=== PATIENT | female | born 1955 | race Caucasian/White ===

== ENCOUNTER → 2016-12-21 | Outpatient (REF) | payer MEDICARE ==
[2016-12-21 12:38] LABS: CALCIUM LEVEL 8.9 MG/DL (8.8-10.2)
== END ==
LOC: M SFHCCLAY 08:14
PROVIDERS: ATTEND Nurse Practitioner Family
DX: I10 Essential (primary) hypertension (principal); E78.4 Other hyperlipidemia; E03.9 Hypothyroidism, unspecified; E55.9 Vitamin D deficiency, unspecified

== ENCOUNTER → 2017-01-04 | Outpatient (CLI) | payer MEDICARE ==
--- NOTE | 2017-01-04 08:29 | REPMRS ---
Patient History The patient states she had a clinical breast exam in 12/2016. Patient is postmenopausal and has history of other cancer at age 38. Family history of breast cancer in maternal aunt at age 50 or over, pancreatic cancer in brother at age 57, and prostate cancer in brother at age 57. Digital Woman Screen Mammo: January 04, 2017 - Exam #: [id number] Bilateral CC and MLO view(s) were taken. Technologist: Mi Schneider Technologist Prior study comparison: November 18, 2015, digital woman screen mammo performed at [facility]. October 30, 2014, digital woman screen mammo performed at [facility]. October 25, 2013, digital woman screen mammo performed at [facility]. FINDINGS: The breast tissue is almost entirely fat. There has been no change in the appearance of the mammogram from the prior studies. There is no interval development of dominant mass, architectural distortion, or clustered microcalcification typical of malignancy. ASSESSMENT: BI-RADS/ACR category 1 mammogram. Negative. Recommendation Routine screening mammogram of both breasts in 1 year (for women over age 40). This mammogram was interpreted with the aid of an FDA-approved computer-aided dectection system. Electronically Signed By: Christopher Welsh MD 01/04/17 0829
== END ==
LOC: M WHC 07:50
PROVIDERS: ATTEND Nurse Practitioner Family
DX: Z12.31 Encounter for screening mammogram for malignant neoplasm of breast (principal); Z78.0 Asymptomatic menopausal state; Z85.9 Personal history of malignant neoplasm, unspecified; Z80.3 Family history of malignant neoplasm of breast

== ENCOUNTER → 2017-03-20 | Outpatient (REF) | payer MEDICARE ==
[~2017-03-20] MED LIST: ASPI81TA85 PO; COUM2.5T17 PO; CYCL10TA PO; HYDR-3713 PO; HYDR25TAB PO; IBUP-1022 PO; LISI10TA4 PO; MULT1TAB15 PO; OMEP40CA2 PO; PERC5TAB12 PO; SIMV40TA2 PO; SYNT125T PO; VITA100066 PO; WARF-23 PO
== END ==
LOC: M SFHCCLAY 08:41
PROVIDERS: ATTEND Nurse Practitioner Family
DX: E78.4 Other hyperlipidemia (principal); E03.9 Hypothyroidism, unspecified; E55.9 Vitamin D deficiency, unspecified

== ENCOUNTER → 2017-04-28 | Outpatient (REF) | payer MEDICARE ==
[2017-04-28 11:55] LABS: MEAN CORPUSCULAR HEMOGLOBIN 31.5 pg (27.0-33.0); MEAN CORPUSCULAR HGB CONC 33.8 g/dl (32.0-36.5); MEAN CORPUSCULAR VOLUME 93.3 fl (80.0-96.0); RED CELL DISTRIBUTION WIDTH 11.5 % (11.5-14.5)
[2017-04-28 12:22] LABS: ALBUMIN 3.6 GM/DL (3.2-5.2); ANION GAP 10 MEQ/L (8-16); BLOOD UREA NITROGEN 17 MG/DL (7-18); CALCIUM LEVEL 8.8 MG/DL (8.8-10.2); CARBON DIOXIDE LEVEL 27 MEQ/L (21-32); CHLORIDE LEVEL 101 MEQ/L (98-107); CREATININE FOR GFR 0.74 MG/DL (0.55-1.02); GLOMERULAR FILTRATION RATE > 60.0 (>45); GLUCOSE, FASTING 84 MG/DL (80-110); POTASSIUM SERUM 4.3 MEQ/L (3.5-5.1); SODIUM LEVEL 138 MEQ/L (136-145)
== END ==
LOC: M LABDRAWC 11:22
PROVIDERS: ATTEND Orthopaedic Surgery
DX: M51.36 Other intervertebral disc degeneration, lumbar region (principal)

== ENCOUNTER → 2017-06-01 | Outpatient (CLI) | payer MEDICARE ==
[2017-06-01 11:19] LABS: MEAN CORPUSCULAR HEMOGLOBIN 30.3 pg (27.0-33.0); MEAN CORPUSCULAR HGB CONC 32.6 g/dl (32.0-36.5); MEAN CORPUSCULAR VOLUME 92.9 fl (80.0-96.0); RED CELL DISTRIBUTION WIDTH 11.8 % (11.5-14.5); WHITE BLOOD COUNT 7.3 10^3/uL (4.0-10.0)
--- NOTE | 2017-06-01 11:22 | REP ---
Chest two views HISTORY: Preop Comparison: None A small area of atelectasis or infiltrate is present in the left lower lobe. The right lung is clear. The heart is normal in size. The pulmonary vasculature is normal in appearance. The bony structure is intact. IMPRESSION: Small area of left lower lobe atelectasis or infiltrate. Signed by Gabriel Cardenas MD 06/01/2017 11:13 A
[2017-06-01 11:34] LABS: INR 0.82
[2017-06-01 11:56] LABS: ALBUMIN 3.7 GM/DL (3.2-5.2); ALBUMIN/GLOBULIN RATIO 1.12 (1.00-1.93); ALKALINE PHOSPHATASE 107 U/L (45-117); ALT/SGPT 27 U/L (12-78); ANION GAP 6 MEQ/L (8-16); AST/SGOT 19 U/L (15-37); BILIRUBIN,TOTAL 0.4 MG/DL (0.2-1.0); BLOOD UREA NITROGEN 19 MG/DL (7-18); CALCIUM LEVEL 9.1 MG/DL (8.8-10.2); CARBON DIOXIDE LEVEL 29 MEQ/L (21-32); CHLORIDE LEVEL 103 MEQ/L (98-107); CREATININE FOR GFR 0.76 MG/DL (0.55-1.02); GLOMERULAR FILTRATION RATE > 60.0 (>45); GLUCOSE, FASTING 94 MG/DL (80-110); POTASSIUM SERUM 4.3 MEQ/L (3.5-5.1); SODIUM LEVEL 138 MEQ/L (136-145)
--- NOTE | 2017-06-01 22:49 | ECGEPIP ---
Stationary ECG Study [facility] Test Date: 2017-06-01 Pat Name: MARILY HOLLINGSWORTH Department: Room: - Gender: F Color Separation Photographer: SILVIA : 1955 Requested By: Dusty Lowry Order Number: [id number] Reading MD: Dwayne Khan Measurements Intervals [place] Rate: 93 P: 24 [place]: 153 QRS: -20 QRSD: 86 T: 51 QT: 335 QTc: 417 Interpretive Statements SINUS RHYTHM POSSIBLE RIGHT VENTRICULAR CONDUCTION DELAY Poor R-wave progression. NONSPECIFIC T-WAVE ABNORMALITY No prior ECG available for comparison at the time of interpretation. Electronically Signed On 06-01-2017 22:49:47 EDT by Dwayne Khan
== END ==
LOC: M ADMPAT 09:28
PROVIDERS: ATTEND Orthopaedic Surgery
DX: Z01.818 Encounter for other preprocedural examination (principal); M17.12 Unilateral primary osteoarthritis, left knee; Z79.01 Long term (current) use of anticoagulants; Z79.899 Other long term (current) drug therapy

== ENCOUNTER → 2017-06-07 | Outpatient (REF) | payer MEDICARE | LOC: M LAB REF 11:37 | PROVIDERS: ATTEND Orthopaedic Surgery | DX: M17.12 Unilateral primary osteoarthritis, left knee (principal); Z01.812 Encounter for preprocedural laboratory examination ==

== ENCOUNTER 2017-06-12 09:20 | Inpatient (IN) | payer MEDICARE ==
[2017-06-01 09:51] VITALS: BP 122/68
--- NOTE | 2017-06-09 13:30 | HPE ---
DATE OF ADMISSION: 06/12/2017 HISTORY OF PRESENT ILLNESS: This is a pleasant female with continuing symptomatic left knee osteoarthritis. She has consented for left total knee arthroplasty per Dr. Dusty vasquez. Medical optimization per Dr. Riggs. X-rays are consistent with advanced osteoarthritis. ALLERGIES: PENICILLIN. MEDICAL PROBLEM LIST: Includes: 1. Hypercholesteremia. 2. Hypertension. 3. Osteoarthritis. 4. Hypothyroid with a history of thyroid cancer and thyroidectomy. CURRENT MEDICATIONS List includes: - cyclobenzaprine HCl 10 mg - hydrocodone/acetaminophen 5/325 - Ibuprofen 600 mg - Zocor 40 mg - Levothroid 125 mcg - hydrochlorothiazide 25 mg - Prilosec 40 mg FAMILY HISTORY: Positive for arthritis, hypertension, heart disease, diabetes, hypercholesteremia, cancer. SOCIAL HISTORY: The patient is a former smoker, quit 1984. Just occasionally, very lightly consumes alcohol. Denies illicit drugs. REVIEW OF SYSTEMS: Denies chest pain, shortness of breath, dyspnea on exertion, fever, chills, malaise, upper respiratory or urinary tract symptoms. PHYSICAL EXAMINATION: Blood pressure 130/92, pulse 84, respirations 12. She is a pleasant, obese, white female in no acute distress. She is alert and oriented times three. Mood and affect are appropriate. She is ambulating with antalgia about the left knee , favoring of the right. No assistive device. She did have a knee brace applied. Skin is inspected and benign, noninfectious looking. Bowel sounds times four, soft, nontender. Chest rises symmetrically. Lungs are clear to auscultation. Neck with negative jugular venous distention (JVD) or bruits. Chest x-ray shows small area left lower old lobe atelectasis or infiltrate, as read by Dr. Cardenas on 06/01/2017. The patient notes that a followup study will be done for that but that her primary care provider stated this without affect her medical optimization and I agree since I did read the optimization clearance. EKG with sinus rhythm, possible right ventricular conduction delay, as read by Dr. Khan. LABORATORY FINDINGS: Showed BUN 19 and anion gap 6, red blood cell count 3.96, PTT 11.3. Bacteria urine auto 1+. Urine, nasal, and sinus culture were unremarkable. IMPRESSION: 1. Symptomatic left knee osteoarthritis. 2. The patient consented for left total knee arthroplasty per Dr. Dusty Vasquez. 3. Medical optimization per Dr. Riggs. 4. On-call to OR, 600 mg IV clindamycin per penicillin allergy. 5. SCD and TEDs in OR. MTDD
[2017-06-12] VITALS (7 sets, daily range): BP systolic 120–149; BP diastolic 77–89; O2SAT 94
[~2017-06-12] VITALS: Ht 154.9 cm; Wt 94.8 kg
[~2017-06-12 09:20] MED LIST changes: +CLINDAMYCIN 600 MG in APPROPRIATE DILUENT 1 EA IV ONE; -COUM2.5T17 PO; +LR 1,000 ML IV SCH; -PERC5TAB12 PO; -WARF-23 PO
[2017-06-12] MEDS ORDERED: WARF-23 PO (09:59)
--- NOTE | 2017-06-12 10:57 | IPN ---
DATE: 06/12/2017 The patient was seen and examined. She wished to go ahead with a left total knee arthroplasty. She understands the nature this, the risks of bleeding, infection, damage to nerves, vessels, persistent pain, wear loosening, blood clots, medical problems, among others. She understands her morbid obesity increases her risks of complications with this knee.
[2017-06-12] MEDS ORDERED: MIDAZOLAM INJ 2 MG/2 ML VIAL (J2250) As Ordered ONE ×2 (11:24→11:26)
[2017-06-12] MEDS ORDERED: LIDOCAINE 2% INJ 100 MG/5 ML SDV (FOR ANES.) As Ordered ONE (11:24)
[2017-06-12] MEDS ORDERED: fentaNYL 100 MCG/2 ML INJECTION (J3010) As Ordered ONE ×2 (11:24→11:26)
[2017-06-12] MEDS ORDERED: PROPOFOL 200 MG/20 ML VIAL As Ordered ONE (11:24)
[2017-06-12] MEDS ORDERED: TRANEXAMIC ACID 100 MG/ML 10ML VIAL As Ordered ONE (12:29)
[2017-06-12] MEDS ORDERED: BUPIVACAINE LIPOSOME/PF 1.3% 20 ML VIAL (13.3MG/ML)(EXPAREL) As Ordered ONE (12:30)
[2017-06-12] MEDS ORDERED: EPINEPHrine INJ 1 MG/ML 1ML AMP As Ordered ONE (12:30)
[2017-06-12] MEDS ORDERED: ceFAZolin 1GM INJ (J0690) As Ordered ONE (12:35)
[2017-06-12] MEDS ORDERED: fentaNYL 100 MCG/2 ML INJECTION (J3010) IV ONE (12:45)
[2017-06-12] MEDS ORDERED: MIDAZOLAM INJ 2 MG/2 ML VIAL (J2250) IV ONE (12:45)
[2017-06-12] MEDS ORDERED: CLINDAMYCIN 600 MG/50 ML PREMIX BAG As Ordered ONE ×2 (12:46→12:48)
[2017-06-12] MEDS ORDERED: CLINDAMYCIN INJ 900MG/6ML VIAL As Ordered ONE (12:52)
[2017-06-12] MEDS ORDERED: PHENYLephrine HCL 500 MCG/5 ML (100MCG/ML) SYRINGE (J2370) As Ordered ONE (13:49)
[2017-06-12] MEDS ORDERED: MORPHINE 1MG/ML IN 0.9% NACL 100ML IV BAG As Ordered ONE (14:40)
[2017-06-12] MEDS ORDERED: NALBUPHINE HCL 10 MG/ML AMP (J2300) IV PRN (15:00)
[2017-06-12] MEDS ORDERED: diphenhydrAMINE INJ 50MG/ML VIAL (J1200) IV PRN (15:00)
[2017-06-12] MEDS ORDERED: ONDANSETRON 4MG/2ML VIAL (J2405) IV PRN ×3 (15:00→15:15)
[2017-06-12] MEDS ORDERED: EPIDURAL/PCA KEYS XX PRN (15:00)
[2017-06-12] MEDS ORDERED: MORPHINE 1MG/ML IN 0.9% NACL 100ML IV BAG IV PRN (15:00)
[2017-06-12] MEDS ORDERED: NALOXONE INJ 0.4 MG/1 ML VIAL (J2310) IV PRN (15:00)
[2017-06-12] MEDS ORDERED: fentaNYL 100 MCG/2 ML INJECTION (J3010) IV PRN (15:15)
[2017-06-12] MEDS ORDERED: METOCLOPRAMIDE INJ 10MG/2ML VIAL (J2765) IV PRN (15:15)
[2017-06-12] MEDS ORDERED: PERCOCET 5MG/325MG TAB PO PRN (15:15)
[2017-06-12] MEDS ORDERED: LR 1,000 ML IV SCH ×2 (15:15)
[2017-06-12] MEDS ORDERED: FLEET ENEMA PR PRN (15:15)
[2017-06-12] MEDS ORDERED: MEPERIDINE INJ 25 MG/ML VIAL (J2175) IV PRN (15:15)
[2017-06-12] MEDS ORDERED: ACETAMINOPHEN TAB 650MG DOSE (2X325MG) PO PRN (15:15)
[2017-06-12] MEDS ORDERED: WARFARIN SOD 5 MG TAB PO ONE (17:00)
--- NOTE | 2017-06-12 17:43 | IPNPDOC ---
Subjective Date Seen The patient was seen on 06/12/17. Subjective Chief Complaint/HPI The patient is a 61-year-old female admitted with a reason for visit of Left Knee Arthritis. Events since last encounter Patient was seen and examined post op. She had a left TKA performed by Dr. Dusty Lowry on 06/12/2017. Patient has a past medical history significant for knee arthritis, hypothyroidism status post thyroidectomy, hypercholesterolemia, hypertension, low back pain, osteopenia, INNA. Patient reports doing well after surgery. She denies any discomfort. She states that the pain is well-controlled at the moment. She has no other medical concerns. Constitutional: Denies: Chills, Fever, Night Sweats Pulmonary: Denies: Dyspnea, Cough Cardiovascular: Denies: Chest Pain, Palpitations, Orthopnea, Paroxysmal Noc. Dyspnea, Lt Headedness Gastrointestinal: Denies: Nausea, Vomiting, Abdominal Pain, Diarrhea, Constipation Genitourinary: Denies: Dysuria, Frequency, Incontinence, Retention Neurological: Reports: Numbness (some numbness to the left knee surgical site) , Denies: Weakness, Change in speech, Confusion Objective Physical Examination General Exam: Positive: Alert, No Acute Distress Eye Exam: Positive: PERRLA, EOMI ENT Exam: Positive: Mucous membr. moist/pink, Pharynx Normal Chest Exam: Positive: Clear to auscultation, Normal air movement Heart Exam: Positive: Rate Normal, Regular Rhythm, Normal S1, Normal S2, Negative: Murmurs, Rubs Abdomen Exam: Positive: Normal bowel sounds, Soft, Negative: Tenderness, Hepatospenomegaly Extremity Exam: Positive: Normal pulses, Negative: Clubbing, Cyanosis, Edema Neuro Exam: Positive: Normal Speech, Sensation Intact, Cranial Nerves 3-12 NL Psych Exam: Positive: Mental status NL, Mood NL Assessment /Plan Problems (1) S/P total knee arthroplasty Status: Acute Problem Text: Postop day #0, patient had left TKA. Surgery performed by Dr. Dusty Lowry on 06/12/2017. Pain management, bowel care, and rehabilitation will be managed by orthopedic surgery. (2) Arthritis of left knee Status: Chronic Problem Text: Patient had left TKA (3) Hypothyroid Status: Chronic Problem Text: Continue patient on Synthroid 125 mcg daily. (4) Hypercholesterolemia Status: Chronic Problem Text: Continue Simvastatin 40 mg daily (5) GERD (gastroesophageal reflux disease) Status: Chronic Problem Text: Continue Prilosec 40 mg twice a day (6) INNA on CPAP Status: Chronic Problem Text: Patient brought CPAP, will continue to use overnight. (7) Essential (primary) hypertension Status: Chronic Problem Text: Hypertension currently well controlled. Will hold lisinopril and hydrochlorothiazide for now. May consider restarting if patient becomes hypertensive. Plan/VTE VTE Prophylaxis Ordered?: Yes VS, I&O, 24H, Fishbone Vital Signs/I&O Vital Signs Date Time Temp Pulse Resp B/P (MAP) Pulse Ox O2 Delivery O2 Flow Rate FiO2 06/12/17 17:15 97.9 77 16 120/78 (92) 100 Room Air 06/12/17 12:25 3 I&O- Last 24 Hours up to 6 AM 06/13/17 06:00 Intake Total 1670 ml Output Total 200 ml Balance 1470 ml GME ATTESTATION GME ATTESTATION My preceptor for this patient encounter was physically present in the building during the encounter and was fully available. As needed, all aspects of the patient interview, examination, medical decision making process, and medical care plan development were reviewed and approved by the preceptor. Preceptor is aware and concurs with the plan as stated in the body of this note and will attest to such by his/her cosignature. BRITTNEY VALDEZ DO Jun 12, 2017 17:43
[2017-06-12] MEDS: SIMVASTATIN 40 MG TAB PO SCH (20:20)
[2017-06-12] MEDS: CLINDAMYCIN 600 MG in APPROPRIATE DILUENT 1 EA IV SCH (20:20)
[2017-06-12] MEDS: OMEPRAZOLE 20 MG CAP PO SCH (20:20)
[2017-06-13 00:15] VITALS: BP 110/66
[2017-06-13 04:15] VITALS: BP 109/66
[2017-06-13] MEDS: LEVOTHYROXINE 125MCG TABLET (0.125MG) PO SCH (05:00)
[2017-06-13] MEDS: CLINDAMYCIN 600 MG in APPROPRIATE DILUENT 1 EA IV SCH (05:00)
[2017-06-13 06:37] LABS: MEAN CORPUSCULAR HEMOGLOBIN 31.3 pg (27.0-33.0); MEAN CORPUSCULAR HGB CONC 33.8 g/dl (32.0-36.5); MEAN CORPUSCULAR VOLUME 92.7 fl (80.0-96.0); PLATELET COUNT, AUTOMATED 226 10^3/uL (150-450); RED CELL DISTRIBUTION WIDTH 11.7 % (11.5-14.5); WHITE BLOOD COUNT 13.9 10^3/uL (4.0-10.0)
[2017-06-13] MEDS ORDERED: ONDANSETRON 4 MG TAB (S0181) PO PRN (06:45)
[2017-06-13] MEDS ORDERED: PERCOCET 5MG/325MG TAB PO PRN (06:45)
[2017-06-13 06:51] LABS: INR 1.13
[2017-06-13 08:15] VITALS: BP 115/72
[2017-06-13] MEDS: MOM 30ML SUSPENSION UDC PO SCH (09:30)
[2017-06-13] MEDS: ASPIRIN 81 MG ENTERIC TAB PO SCH (09:30)
[2017-06-13] MEDS: MIRALAX *UNIT DOSE* 17GM PACKET PO SCH (09:30)
[2017-06-13] MEDS: OMEPRAZOLE 20 MG CAP PO SCH ×2 (09:30→20:23)
[2017-06-13] MEDS: SENOKOT S TAB PO SCH ×2 (09:30→20:23)
[2017-06-13] MEDS: PERCOCET 5MG/325MG TAB PO PRN ×3 (09:31→17:31)
--- NOTE | 2017-06-13 09:32 | REP ---
LEFT KNEE: Two views of the left knee performed. There is a total knee prosthesis in good position. The structures are well aligned and intact. Metallic skin yung are seen anteriorly. Signed by Kenroy Bell MD 06/13/2017 01:07 P
--- NOTE | 2017-06-13 10:41 | IPN ---
DATE: 06/13/2017 Eleni was seen on [address]. No chest pain, shortness of breath. Her pain is under good control. Blood pressure is well controlled off her usual antihypertensive. PHYSICAL EXAMINATION: Blood pressure 110/66, pulse 84. Lungs clear. Heart regular rhythm. Abdomen soft, nontender. IMPRESSION: 1. Hypertension: Blood pressures are well controlled off her NIEVES inhibitor and thiazide diuretic. 2. Hypothyroidism: Continue her current dose of Levothroid. 3. Hypolipidemia: Continue her current dose of simvastatin. She is medically stable. Will follow from a far. Call if there are any new medical issues.
[2017-06-13 14:00] VITALS: BP 109/66
[2017-06-13] MEDS ORDERED: WARFARIN SOD 5 MG TAB PO ONE (17:00)
[2017-06-13] MEDS: SIMVASTATIN 40 MG TAB PO SCH (20:23)
[2017-06-13 22:00] VITALS: BP 123/69
[2017-06-14] MEDS: PERCOCET 5MG/325MG TAB PO PRN ×4 (00:10→13:20)
[2017-06-14] MEDS: LEVOTHYROXINE 125MCG TABLET (0.125MG) PO SCH (04:41)
[2017-06-14 06:00] VITALS: BP 133/88
[2017-06-14 06:26] LABS: MEAN CORPUSCULAR HGB CONC 33.5 g/dl (32.0-36.5); MEAN CORPUSCULAR VOLUME 92.8 fl (80.0-96.0); PLATELET COUNT, AUTOMATED 172 10^3/uL (150-450); RED CELL DISTRIBUTION WIDTH 11.9 % (11.5-14.5); WHITE BLOOD COUNT 10.5 10^3/uL (4.0-10.0)
[2017-06-14 06:35] LABS: INR 1.47
--- NOTE | 2017-06-14 07:10 | RO ---
DATE OF PROCEDURE: 06/12/2017 PREPROCEDURE DIAGNOSIS: Left knee osteoarthritis. POSTPROCEDURE DIAGNOSES: Left knee osteoarthritis with discolored bone noted intraoperative that was a black color throughout possibly due to prior antibiotic use. PROCEDURE: Left total knee arthroplasty using a PFC rotating platform, posterior stabilized 2.5 femur, 2.5 tibia and a 10 polyethylene with a 32 patellar button. SURGEON: Dr. Dusty Lowry. STATEMENT CLERK: Kenroy Álvarez. ANESTHESIA: Spinal. ESTIMATED BLOOD LOSS: 50. COMPLICATIONS: None. INDICATION: This is a 61-year-old woman who is morbidly obese with BMI of 38 who has had gradually worsening left knee pain. She wished to go ahead with a knee replacement having failed conservative management. She understood the nature of the procedure, the risks of bleeding, infection, damage to nerves, vessels, persistent pain, wear, loosening, blood clots, medical problems, among others. PROCEDURE: The patient was taken to operating room and placed in supine position after spinal anesthesia was induced. The left lower extremity was prepped and draped in usual sterile fashion. Tourniquet was inflated. I then created a longitudinal incision over the anterior aspect of the knee and sharp dissection was carried down through subcutaneous tissue. I then performed a medial parapatellar arthrotomy per routine, everted the patella, flexed the knee up and it was immediately evident that there was some blackish discoloration throughout the bone most notable on the medial femoral condyle, medial tibial plateau where most of the wear was. Canal reamer followed by the intramedullary guide. I had done a medial release. I then pinned the distal femoral cutting block in place and the medical staff assistant made the distal femoral cut. Again this blackening of the bone was noted throughout and was fairly uniform throughout the femur. We then sized the femur to be a 2.5 and the distal cutting block was secured with a 3 degree external rotation guide first. The 4-in-1 cutting block was secured. I then made the remaining four cuts protecting soft tissues at all times. I then placed the tibial alignment guide, secured this in place. The appropriate amount of posterior slope and valgus was dialed in and then I made the proximal tibia cut, taking 4 mm off the low side. Again this black bone was noted throughout. The spring production supervisor was then used. Soft tissues removed from either side of the knee and osteophytes from the posterior aspect. There were some loose bodies noted. I then used a spacer block and the 10 spacer block seemed to be the most appropriate in flexion and extension. I then prepared the tibial tray using a 2.5 tray. I then pinned this in place, drilled and broached and the trial components were then placed. It was evident after placement of the 2.5 femur and tibia and the 10 polyethylene rotating platform that she had a significant amount of tightness posteriorly. The PCL may have been somewhat contracted. I did try to free this up some but was not able to get good tissue balance with flexion and the polyethylene was tending to be pushed out. I elected to go with the posterior stabilize. I thought I could achieve better tissue balance so the cutting block was placed on the end of the femur and the three cuts were made to remove the box. At this point, the trial components were placed and was much more pleased with the position and fit and range of motion of the knee and there was no pushing out of the polyethylene. I had carefully remove the PCL with this bony piece in the box cut and used cautery to remove the PCL. I controlled any small bleeders along the posterior capsule with the cautery. I then prepared the patella freehand cut removing about 7 mm of bone. Again this discolored bone was noted. The patella was sized to be a 32 and I put the knee through a range of motion. The patella tracked quite nicely. I was very pleased with the position and alignment of the components. The medical staff assistant prepared the bone cement in a modern technique. I then dried them carefully and then cemented on the tibial component and packed it in place, removed excess bone cement, cemented on the femoral component, removed excess bone cement, placed the rotating platform 10 polyethylene by 2.5 and brought the knee out in extension, cemented on the patella, held this in place with a clamp, removed excess bone cement and once the cement had hardened, we removed the patellar clamp. I had irrigated copiously. I had also injected a total of 40 mL of Exparel around the capsule and extensor mechanism. TXA solution was placed in the knee. I did final deep irrigation, closed the deep layer with #1 Vicryl suture in interrupted fashion followed by the #1 Stratafix starting at the midportion of the patella and moving in both directions with the medical staff assistant's help. Then again irrigated, closed with subcutaneous #2-0 Vicryl. The tourniquet was deflated. [place] were used to close the skin. I had put the knee through range of motion once the deep layer was closed and it was a watertight closure of the deep layer and excellent range of motion with no instability, no clicking. The skin was closed with yung. Sterile dressing was applied. Tourniquet was deflated previously and she was taken to recovery room in stable condition. There were no known complications. The plan will be routine postop. We did send the bone off for pathology. This was coded as an unusually difficult procedure because the patient's BMI was 38. This made things much more difficult. It made visualization more difficult, the cuts more difficult, the closure more difficult and certainly increases her risk of having difficulties. The medical staff assistant was instrumental in holding retractors and making one of the bone cuts, mixing the bone cement, assisting in closure.
--- NOTE | 2017-06-14 07:11 | RO ---
ADDENDUM: After discussing with her in the recovery room where she is doing fine, the black bone that she had, she does say that she had to take minocycline when she was an adolescence for chronic acne and this is a recognized side effect of that medication which I would suspect this would caused her black bone.
[2017-06-14] MEDS ORDERED: COUM2.5T17 PO (08:26)
[2017-06-14] MEDS ORDERED: PERC5TAB12 PO (08:26)
[2017-06-14] MEDS ORDERED: INFLUENZA QUADRIVALENT PF VACCINE 0.5ML SYRINGE (90686) IM SCH (09:00)
[2017-06-14] MEDS: MOM 30ML SUSPENSION UDC PO SCH (09:07)
[2017-06-14] MEDS: SENOKOT S TAB PO SCH (09:07)
[2017-06-14] MEDS: ASPIRIN 81 MG ENTERIC TAB PO SCH (09:07)
[2017-06-14] MEDS: MIRALAX *UNIT DOSE* 17GM PACKET PO SCH (09:07)
[2017-06-14] MEDS: OMEPRAZOLE 20 MG CAP PO SCH (09:07)
--- NOTE | 2017-06-17 15:33 | DSES ---
DATE OF ADMISSION: 06/12/2017 DATE OF DISCHARGE: 06/14/2017 ATTENDING PHYSICIAN: Dr. Dusty Lowry ADMISSION DIAGNOSIS: Osteoarthritis left knee. OTHER DIAGNOSES: Hypothyroidism. Elevated cholesterol. Gastric reflux disease. Sleep apnea. Hypertension. DISCHARGE DIAGNOSIS: Osteoarthritis left knee, status post left total knee arthroplasty. OPERATION PERFORMED: Left total knee arthroplasty. HISTORY: This is a pleasant 61-year-old female patient with progressively worsening left knee pain and stiffness. She failed to improve with conservative management. She was admitted for elective knee replacement on the left side. HOSPITAL COURSE: The patient was admitted on the day of surgery and underwent a left total knee arthroplasty, which was uneventful. She did well in the postoperative period and her hospital course was without complications. She was up with physical therapy per the protocol and her pain was controlled. On day of discharge, she was doing well, weightbearing as tolerated on her left lower extremity. She will use adjusted dose Coumadin, thromboembolism deterrent (YAJAIRA) stockings for 30 days postoperatively for deep vein thrombosis (DVT) prophylaxis. She will resume her preoperative medications and diet. She was given instructions to include but not limited to wound monitoring and activity limitations. She will use oral pain medications for pain control. She will follow up in our office in 10-14 days for surgical followup. Please refer to the medical record for further details.
== END 2017-06-14 13:35 | disposition home health service (06) | DRG 470 ==
LOC: M OR 09:20 → M MS5PR 15:40
PROVIDERS: ADMIT Orthopaedic Surgery; ATTEND Orthopaedic Surgery
PROC: 0SRD0J9 Replacement of Left Knee Joint with Synthetic Substitute, Cemented, Open Approach (ICD-10-PCS; principal; 2017-06-12 12:50)
DX: M17.12 Unilateral primary osteoarthritis, left knee (principal); E78.00 Pure hypercholesterolemia, unspecified; I10 Essential (primary) hypertension; Z88.0 Allergy status to penicillin; E03.9 Hypothyroidism, unspecified; Z85.850 Personal history of malignant neoplasm of thyroid; Z79.899 Other long term (current) drug therapy; Z87.891 Personal history of nicotine dependence; Z96.652 Presence of left artificial knee joint; G47.30 Sleep apnea, unspecified; K21.9 Gastro-esophageal reflux disease without esophagitis; E78.5 Hyperlipidemia, unspecified

== ENCOUNTER → 2017-06-26 | Outpatient (REF) | payer MEDICARE ==
[~2017-06-26] MED LIST changes: -CLINDAMYCIN 600 MG in APPROPRIATE DILUENT 1 EA IV ONE; +COUM2.5T17 PO; -LR 1,000 ML IV SCH; +PERC5TAB12 PO; +WARF-23 PO
[2017-06-26 11:05] LABS: INR 1.26
== END ==
LOC: M LABDRAW1 08:55
PROVIDERS: ATTEND Nurse Practitioner Family
DX: Z79.01 Long term (current) use of anticoagulants (principal)

== ENCOUNTER → 2017-06-29 | Outpatient (REF) | payer MEDICARE ==
[2017-06-29 14:33] LABS: INR 1.6
== END ==
LOC: M SHH 14:06
PROVIDERS: ATTEND Nurse Practitioner Family
DX: Z51.81 Encounter for therapeutic drug level monitoring (principal); Z79.01 Long term (current) use of anticoagulants

== ENCOUNTER → 2017-07-03 | Outpatient (REF) | payer MEDICARE ==
[2017-07-03 12:53] LABS: INR 1.65
== END ==
LOC: M SHH 11:58
PROVIDERS: ATTEND Nurse Practitioner Family
DX: Z79.01 Long term (current) use of anticoagulants (principal)

== ENCOUNTER → 2017-07-05 | Outpatient (REF) | payer MEDICARE ==
[2017-07-05 17:41] LABS: INR 1.76
== END ==
LOC: M SHH 16:23
PROVIDERS: ATTEND Nurse Practitioner Family
DX: Z79.01 Long term (current) use of anticoagulants (principal)

== ENCOUNTER → 2017-09-21 | Outpatient (REF) | payer MEDICARE ==
[2017-09-21 12:27] LABS: HEMATOCRIT 38.2 % (36.0-47.0); HEMOGLOBIN 12.6 g/dl (12.0-16.0); MEAN CORPUSCULAR HEMOGLOBIN 30.3 pg (27.0-33.0); MEAN CORPUSCULAR VOLUME 91.8 fl (80.0-96.0); PLATELET COUNT, AUTOMATED 220 10^3/uL (150-450); RED BLOOD COUNT 4.16 10^6/uL (4.00-5.40); RED CELL DISTRIBUTION WIDTH 12.1 % (11.5-14.5); WHITE BLOOD COUNT 5.9 10^3/uL (4.0-10.0)
[2017-09-21 12:44] LABS: TOTAL 25(OH) VITAMIN D 36.3 NG/ML (30.0-100.0)
[2017-09-21 12:57] LABS: ALBUMIN 3.8 GM/DL (3.2-5.2); ALBUMIN/GLOBULIN RATIO 1.23 (1.00-1.93); ALKALINE PHOSPHATASE 97 U/L (45-117); ALT/SGPT 23 U/L (12-78); ANION GAP 6 MEQ/L (8-16); AST/SGOT 12 U/L (7-37); BILIRUBIN,TOTAL 0.4 MG/DL (0.2-1.0); BLOOD UREA NITROGEN 18 MG/DL (7-18); CALCIUM LEVEL 8.8 MG/DL (8.8-10.2); CARBON DIOXIDE LEVEL 31 MEQ/L (21-32); CHLORIDE LEVEL 102 MEQ/L (98-107); CHOLESTEROL LEVEL 189 MG/DL (<200); CREATININE FOR GFR 0.72 MG/DL (0.55-1.30); GLOMERULAR FILTRATION RATE > 60.0 (>45); GLUCOSE, FASTING 92 MG/DL (70-100); HDL CHOLESTEROL 50 MG/DL (>40); LDL CHOLESTEROL 114.6 MG/DL (<100); NON-HDL-C 139 MG/DL; POTASSIUM SERUM 4.1 MEQ/L (3.5-5.1); SODIUM LEVEL 139 MEQ/L (136-145); THYROID STIMULATING HORMONE 0.524 uIU/ML (0.358-3.740); TOTAL PROTEIN 6.9 GM/DL (6.4-8.2); TRIGLYCERIDES LEVEL 122 MG/DL (<150)
== END ==
LOC: M SFHCCLAY 08:27
DX: E78.4 Other hyperlipidemia (principal); E03.9 Hypothyroidism, unspecified; E55.9 Vitamin D deficiency, unspecified
CPT/HCPCS: 84443

== ENCOUNTER → 2017-11-24 | Outpatient (CLI) | payer MEDICARE | LOC: M PLARAD 08:57 | DX: M25.561 Pain in right knee (principal); M25.562 Pain in left knee; M47.817 Spondylosis without myelopathy or radiculopathy, lumbosacral region; M51.27 Other intervertebral disc displacement, lumbosacral region; M51.37 Other intervertebral disc degeneration, lumbosacral region | CPT/HCPCS: 72148 ==

== ENCOUNTER → 2018-01-25 | Outpatient (CLI) | payer MEDICARE | LOC: M WHC 06:50 | DX: Z12.31 Encounter for screening mammogram for malignant neoplasm of breast (principal) | CPT/HCPCS: 77067 ==

== ENCOUNTER → 2018-03-22 | Outpatient (REF) | payer MEDICARE ==
[2018-03-22 13:11] LABS: CHOLESTEROL LEVEL 200 MG/DL (<200); CHOLESTEROL RISK RATIO 3.571 (<5); HDL CHOLESTEROL 56 MG/DL (>40); LDL CHOLESTEROL 119.8 MG/DL (<100); NON-HDL-C 144 MG/DL; TRIGLYCERIDES LEVEL 121 MG/DL (<150)
== END ==
LOC: M SFHCCLAY 08:28
DX: E78.4 Other hyperlipidemia (principal)
CPT/HCPCS: 80061

== ENCOUNTER → 2018-06-04 | Outpatient (CLI) | payer OTHER, MEDICARE ==
[2018-06-04 09:56] LABS: HEMOGLOBIN 12.4 g/dl (12.0-15.5); MEAN CORPUSCULAR HEMOGLOBIN 30.7 pg (27.0-33.0); MEAN CORPUSCULAR HGB CONC 32.6 g/dl (32.0-36.5); MEAN CORPUSCULAR VOLUME 94.1 fl (80.0-96.0); PLATELET COUNT, AUTOMATED 216 10^3/uL (150-450); RED BLOOD COUNT 4.04 10^6/uL (4.00-5.40); RED CELL DISTRIBUTION WIDTH 11.6 % (11.5-14.5); WHITE BLOOD COUNT 5.8 10^3/uL (4.0-10.0)
[2018-06-04 10:08] LABS: INR 0.96; PROTHROMBIN TIME 12.9 SECONDS (12.1-14.4)
[2018-06-04 10:19] LABS: ALBUMIN 3.7 GM/DL (3.2-5.2); ALBUMIN/GLOBULIN RATIO 1.16 (1.00-1.93); ALKALINE PHOSPHATASE 111 U/L (45-117); ALT/SGPT 24 U/L (12-78); ANION GAP 7 MEQ/L (8-16); AST/SGOT 15 U/L (7-37); BILIRUBIN,TOTAL 0.4 MG/DL (0.2-1.0); BLOOD UREA NITROGEN 14 MG/DL (7-18); CALCIUM LEVEL 9.3 MG/DL (8.8-10.2); CARBON DIOXIDE LEVEL 30 MEQ/L (21-32); CHLORIDE LEVEL 102 MEQ/L (98-107); CREATININE FOR GFR 0.74 MG/DL (0.55-1.30); GLOMERULAR FILTRATION RATE > 60.0 (>45); GLUCOSE, FASTING 98 MG/DL (70-100); POTASSIUM SERUM 4.6 MEQ/L (3.5-5.1); SODIUM LEVEL 139 MEQ/L (136-145); TOTAL PROTEIN 6.9 GM/DL (6.4-8.2)
[2018-06-04 10:37] LABS: ERYTHROCYTE SEDIMENTATION RATE 12 mm/hr (0-30)
== END ==
LOC: M LAB 09:05
DX: Z01.818 Encounter for other preprocedural examination (principal); M17.11 Unilateral primary osteoarthritis, right knee
CPT/HCPCS: 71046

== ENCOUNTER → 2018-10-02 | Outpatient (REF) | payer MEDICARE ==
[2018-10-02 11:33] LABS: HEMOGLOBIN 12.2 g/dl (12.0-15.5); MEAN CORPUSCULAR HEMOGLOBIN 30.3 pg (27.0-33.0); PLATELET COUNT, AUTOMATED 235 10^3/uL (150-450); RED BLOOD COUNT 4.02 10^6/uL (4.00-5.40)
[2018-10-02 11:57] LABS: BLOOD UREA NITROGEN 14 MG/DL (7-18); CALCIUM LEVEL 8.6 MG/DL (8.8-10.2); CARBON DIOXIDE LEVEL 30 MEQ/L (21-32); CHLORIDE LEVEL 100 MEQ/L (98-107); CREATININE FOR GFR 0.74 MG/DL (0.55-1.30); GLOMERULAR FILTRATION RATE > 60.0 (>45); GLUCOSE, FASTING 103 MG/DL (70-100); POTASSIUM SERUM 4.3 MEQ/L (3.5-5.1); SODIUM LEVEL 137 MEQ/L (136-145)
[2018-10-02 11:58] LABS: ALBUMIN 3.5 GM/DL (3.2-5.2); ALT/SGPT 24 U/L (12-78); BILIRUBIN,TOTAL 0.5 MG/DL (0.2-1.0); CHOLESTEROL LEVEL 200 MG/DL (<200); CHOLESTEROL RISK RATIO 4.166 (<5); HDL CHOLESTEROL 48 MG/DL (>40); LDL CHOLESTEROL 125 MG/DL (<100); NON-HDL-C 152 MG/DL; TOTAL 25(OH) VITAMIN D 15.8 NG/ML (30.0-100.0); TOTAL PROTEIN 6.8 GM/DL (6.4-8.2); TRIGLYCERIDES LEVEL 136 MG/DL (<150)
== END ==
LOC: M SFHCCLAY 07:44
PROVIDERS: ATTEND Nurse Practitioner Family
DX: I10 Essential (primary) hypertension (principal); E78.49 Other hyperlipidemia; E89.0 Postprocedural hypothyroidism; E55.9 Vitamin D deficiency, unspecified; Z79.01 Long term (current) use of anticoagulants

== ENCOUNTER → 2018-11-06 | Outpatient (CLI) | payer OTHER, MEDICARE ==
[2018-11-06 09:55] LABS: HEMATOCRIT 37.9 % (36.0-47.0); HEMOGLOBIN 12.2 g/dl (12.0-15.5); MEAN CORPUSCULAR HEMOGLOBIN 30.3 pg (27.0-33.0); MEAN CORPUSCULAR HGB CONC 32.2 g/dl (32.0-36.5); MEAN CORPUSCULAR VOLUME 94.3 fl (80.0-96.0); PLATELET COUNT, AUTOMATED 220 10^3/uL (150-450); RED BLOOD COUNT 4.02 10^6/uL (4.00-5.40); WHITE BLOOD COUNT 6.6 10^3/uL (4.0-10.0)
[2018-11-06 10:06] LABS: INR 0.94; PROTHROMBIN TIME 12.7 SECONDS (12.1-14.4)
[2018-11-06 10:22] LABS: ALBUMIN 3.8 GM/DL (3.2-5.2); ALT/SGPT 27 U/L (12-78); BILIRUBIN,TOTAL 0.4 MG/DL (0.2-1.0); BLOOD UREA NITROGEN 17 MG/DL (7-18); CALCIUM LEVEL 8.7 MG/DL (8.8-10.2); CARBON DIOXIDE LEVEL 29 MEQ/L (21-32); CHLORIDE LEVEL 101 MEQ/L (98-107); CREATININE FOR GFR 0.84 MG/DL (0.55-1.30); GLOMERULAR FILTRATION RATE > 60.0 (>45); GLUCOSE, FASTING 99 MG/DL (70-100); POTASSIUM SERUM 3.9 MEQ/L (3.5-5.1); SODIUM LEVEL 137 MEQ/L (136-145); TOTAL PROTEIN 6.7 GM/DL (6.4-8.2)
[2018-11-06 10:26] LABS: ERYTHROCYTE SEDIMENTATION RATE 17 mm/hr (0-30)
--- NOTE | 2018-11-06 14:32 | REP ---
CHEST X-RAY: TWO VIEWS. HISTORY: Preoperative testing. COMPARISON CHEST X-RAY: June 04, 2018 FINDINGS: The lungs are symmetrically aerated and free of infiltrate. Heart is not enlarged. Pulmonary vasculature is not increased. The aorta is slightly tortuous. There are degenerative changes in the thoracic spine. IMPRESSION: No active disease. Electronically Signed by Ryder Welsh MD 11/06/2018 03:07 P
--- NOTE | 2018-11-07 21:14 | ECGEPIP ---
Stationary ECG Study [facility] Test Date: 2018-11-06 Pat Name: MARILY HOLLINGSWORTH Department: Room: - Gender: F [employer] Dispatcher: BHARATH : 1955 Requested By: Laron Lowry Order Number: [id number] Reading MD: Darrin Cuevas Measurements Intervals [place] Rate: 79 P: 24 [place]: 164 QRS: -16 QRSD: 91 T: 55 QT: 397 QTc: 457 Interpretive Statements SINUS RHYTHM MINIMAL CHANGE SINCE 06/04/18 Electronically Signed On 11-07-2018 21:13:51 EDT by Darrin Cuevas
== END ==
LOC: M LAB 09:10
PROVIDERS: ATTEND Family Medicine
DX: M17.11 Unilateral primary osteoarthritis, right knee (principal)

== ENCOUNTER → 2019-01-18 | Outpatient (REF) | payer OTHER ==
[~2019-01-18] MED LIST changes: +XARE10TA PO
[2019-01-18 16:49] LABS: CALCIUM LEVEL 8.5 MG/DL (8.8-10.2); CHOLESTEROL RISK RATIO 4.452 (<5); THYROID STIMULATING HORMONE 2.2 uIU/ML (0.358-3.740)
[2019-01-18 16:50] LABS: TOTAL 25(OH) VITAMIN D 16.8 NG/ML (30.0-100.0)
== END ==
LOC: M SFHCCLAY 09:53
PROVIDERS: ATTEND Nurse Practitioner Family
DX: I10 Essential (primary) hypertension (principal); E78.49 Other hyperlipidemia; E89.0 Postprocedural hypothyroidism; E55.9 Vitamin D deficiency, unspecified

== ENCOUNTER → 2019-04-29 | Outpatient (REF) | payer MEDICARE ==
[~2019-04-29] MED LIST changes: -OMEP40CA2 PO; +OMEP40CA97 PO; -SIMV40TA2 PO; +SIMV40TA20 PO
[2019-04-29 12:16] LABS: ALBUMIN 3.6 GM/DL (3.2-5.2); BILIRUBIN,DIRECT 0.3 MG/DL (0.0-0.2); BILIRUBIN,TOTAL 1.1 MG/DL (0.2-1.0); CALCIUM LEVEL 9.6 MG/DL (8.8-10.2); CHOLESTEROL RISK RATIO 3.411 (<5); THYROID STIMULATING HORMONE 1.85 uIU/ML (0.358-3.740); TOTAL 25(OH) VITAMIN D 39.4 NG/ML (30.0-100.0); TOTAL PROTEIN 6.9 GM/DL (6.4-8.2)
== END ==
LOC: M SFHCCLAY 08:20
PROVIDERS: ATTEND Nurse Practitioner Family
DX: I10 Essential (primary) hypertension (principal); E78.49 Other hyperlipidemia; E89.0 Postprocedural hypothyroidism; E55.9 Vitamin D deficiency, unspecified; Z79.899 Other long term (current) drug therapy

== ENCOUNTER → 2019-07-22 | Outpatient (REF) | payer MEDICARE ==
[2019-07-22 11:42] LABS: CHOLESTEROL LEVEL 176 MG/DL (<200); CHOLESTEROL RISK RATIO 4.093 (<5); HDL CHOLESTEROL 43 MG/DL (>40); LDL CHOLESTEROL 111 MG/DL (<100); NON-HDL-C 133 MG/DL; THYROID STIMULATING HORMONE 0.593 uIU/ML (0.358-3.740); TRIGLYCERIDES LEVEL 112 MG/DL (<150)
[2019-07-22 12:30] LABS: TOTAL 25(OH) VITAMIN D 34.7 NG/ML (30.0-100.0)
[2019-07-26 00:01] LABS: ALBUMIN 3.4 GM/DL (3.2-5.2); ALT/SGPT 27 U/L (12-78); BILIRUBIN,DIRECT < 0.1 MG/DL (0.0-0.2); BILIRUBIN,TOTAL 0.2 MG/DL (0.2-1.0); TOTAL PROTEIN 6.6 GM/DL (6.4-8.2)
== END ==
LOC: M SFHCCLAY 07:36
PROVIDERS: ATTEND Nurse Practitioner Family
DX: R94.5 Abnormal results of liver function studies (principal); E78.49 Other hyperlipidemia; E89.0 Postprocedural hypothyroidism; E55.9 Vitamin D deficiency, unspecified

== ENCOUNTER 2019-10-24 09:07 | Day surgery (SDC) | payer MEDICARE ==
[~2019-10-24] VITALS: Ht 162.6 cm; Wt 99.8 kg
[~2019-10-24 09:07] MED LIST changes: +APPL300T4 PO; +ATOR1TAB21 PO; +CINN500C15 PO; +CRAN400C PO; +MULTCAP PO; +NS 1,000 ML IV ONE; +SM M250T PO; +VITA50005 PO; +VITATAB73 PO; +[UNRECOGNIZED DRUG - CODE] PO
[2019-10-24] MEDS ORDERED: propofoL 200 MG/20 ML VIAL As Ordered ONE (09:27)
[2019-10-24] MEDS ORDERED: LIDOCAINE 2% INJ 100 MG/5 ML SDV (FOR ANES.) As Ordered ONE (09:27)
[2019-10-24] MEDS ORDERED: fentaNYL 100 MCG/2 ML INJECTION (J3010) As Ordered ONE (09:30)
--- NOTE | 2019-10-24 10:57 | ROOR ---
Patient Name: Eleni Carranza Procedure Date: 10/24/2019 10:36 AM Date of : 1955 Age: 64 Room: [facility] Gender: Female Note Status: Finalized Procedure: Upper GI endoscopy Indications: Heartburn, Suspected esophageal reflux Providers: Jorge Alberto Ellis Jr, MD Referring MD: Kevin Riggs MD Requesting Provider: Medicines: Propofol per Anesthesia Complications: No immediate complications. Procedure: Pre-Anesthesia Assessment: - Prior to the procedure, a History and Physical was performed, and patient medications and allergies were reviewed. The patient is competent. The risks and benefits of the procedure and the sedation options and risks were discussed with the patient. All questions were answered and informed consent was obtained. Patient identification and proposed procedure were verified by the physician and the nurse in the pre-procedure area and in the procedure room. Mental Status Examination: alert and oriented. Airway Examination: normal oropharyngeal airway and neck mobility. Respiratory Examination: clear to auscultation. CV Examination: normal. ASA Grade Assessment: II - A patient with mild systemic disease. After reviewing the risks and benefits, the patient was deemed in satisfactory condition to undergo the procedure. The anesthesia plan was to use moderate sedation / analgesia (conscious sedation). Immediately prior to administration of medications, the patient was re-assessed for adequacy to receive sedatives. The heart rate, respiratory rate, oxygen saturations, blood pressure, adequacy of pulmonary ventilation, and response to care were monitored throughout the procedure. The physical status of the patient was re-assessed after the procedure. The Endoscope was introduced through the mouth, and advanced to the second part of duodenum. The upper GI endoscopy was accomplished without difficulty. The patient tolerated the procedure well. Findings: The upper third of the esophagus, middle third of the esophagus and lower third of the esophagus were normal. A small hiatal hernia was present. The cardia, gastric fundus, prepyloric region of the stomach and pylorus were normal. Multiple small pedunculated polyps with no stigmata of recent bleeding were found in the gastric body and in the gastric antrum. The polyp was removed with a hot snare. Resection was complete, but the polyp tissue was only partially retrieved. The duodenal bulb, first portion of the duodenum and second portion of the duodenum were normal. Impression: - Normal upper third of esophagus, middle third of esophagus and lower third of esophagus. - Small hiatal hernia. - Normal cardia, gastric fundus, prepyloric region of the stomach and pylorus. - Multiple gastric polyps. Complete resection. Partial retrieval. - Normal duodenal bulb, first portion of the duodenum and second portion of the duodenum. Recommendation: - Return to my office in 1 week. Jorge Alberto Ellis MD Jorge Alberto Ellis Jr, MD 10/24/2019 10:56:53 AM Electronically signed by Jorge Alberto Ellis Jr, MD Number of Addenda: 0 Note Initiated On: 10/24/2019 10:36 AM Estimated Blood Loss: Estimated blood loss: none.
[2019-10-24 11:20] VITALS: BP 121/72
== END 2019-10-24 11:36 | disposition home or self-care (01) ==
LOC: M OPP 09:07
PROVIDERS: ATTEND Surgery
DX: K44.9 Diaphragmatic hernia without obstruction or gangrene (principal); K31.7 Polyp of stomach and duodenum; R12 Heartburn; K21.9 Gastro-esophageal reflux disease without esophagitis; G47.30 Sleep apnea, unspecified; Z79.891 Long term (current) use of opiate analgesic; Z79.899 Other long term (current) drug therapy; Z88.0 Allergy status to penicillin
CPT/HCPCS: 43251; 88305; J3010

== ENCOUNTER → 2020-03-23 | Outpatient (REF) | payer MEDICARE ==
[~2020-03-23] MED LIST changes: -ASPI81TA85 PO; +ASPI81TA86 PO; +CYCL-707 PO; -CYCL10TA PO; -NS 1,000 ML IV ONE
[2020-05-06 14:21] LABS: CHOLESTEROL RISK RATIO 4.279 (<5); THYROID STIMULATING HORMONE 11.9 uIU/ML (0.358-3.740); TOTAL 25(OH) VITAMIN D 43.7 NG/ML (30.0-100.0)
== END ==
LOC: M SFHCCLAY 10:27
PROVIDERS: ATTEND Nurse Practitioner Family
DX: I10 Essential (primary) hypertension (principal); E78.5 Hyperlipidemia, unspecified; E03.9 Hypothyroidism, unspecified; E55.9 Vitamin D deficiency, unspecified; Z79.899 Other long term (current) drug therapy

== ENCOUNTER → 2020-04-03 | Outpatient (CLI) | payer MEDICARE ==
--- NOTE | 2020-04-04 14:15 | REPMRS ---
Patient History The patient states she had a clinical breast exam in March 2020. Family history of breast cancer at age 50 or over in maternal aunt, pancreatic cancer at age 57 and prostate cancer at age 57 in brother. No Hormone Replacement Therapy Digital Woman Screen Mammo: April 03, 2020 - Exam #: [id number] Bilateral CC and MLO view(s) were taken. Technologist: Angelina Verduzco, Technologist Prior study comparison: March 05, 2019, bilateral digital woman screen mammo performed at [facility]. January 25, 2018, bilateral digital woman screen mammo performed at [facility]. January 04, 2017, digital woman screen mammo performed at [facility]. FINDINGS: The breast tissue is almost entirely fat. The Volpara volumetric breast density category is: A. There is a 1.1 cm mixed density nodule inferolaterally in the left breast, new from the prior examination. This merits further evaluation. There has been no other change in the appearance of the mammogram from the prior studies. There is no other interval development of dominant mass, architectural distortion, or grouped microcalcification typical of malignancy. 3-D tomosynthesis shows no additional findings. Assessment: BI-RADS/ACR category 0 mammogram, Incomplete: Need additional imaging evaluation and/or prior mammograms for comparison. Recommendation Ultrasound and special view mammogram of the left breast. This patient's Lifetime Breast Cancer RIsk is estimated at 7.6 %. This mammogram was interpreted with the aid of an FDA-approved computer-aided dectection system. Electronically Signed By: Christopher Welsh MD 04/04/20 0423
== END ==
LOC: M WHC 08:45
PROVIDERS: ATTEND Nurse Practitioner Family
DX: Z12.31 Encounter for screening mammogram for malignant neoplasm of breast (principal)

== ENCOUNTER → 2020-04-08 | Outpatient (CLI) | payer MEDICARE ==
--- NOTE | 2020-05-11 16:32 | REP ---
DIGITAL DIAGNOSTIC UNILATERAL LEFT BREAST MAMMOGRAPHY WITH CAD AND FOCUSED LEFT BREAST SONOGRAPHY: HISTORY: Screening mammography from 04/03/20 was BI-RADS category 0 because of a 1.1 cm mixed density nodule inferolaterally in the left breast which was new. Comparison is also made with prior mammography from 03/05/19 and 01/25/18. MAMMOGRAPHIC FINDINGS: Magnified focal spot compression CC, MLO and true mediolateral views confirm the presence of an irregular mixed density nodule in the left inferolateral quadrant, 8 mm in greatest diameter. The nodule appears to contain intralesional fat. This suggests a benign etiology. The breast parenchyma is extensively fat- replaced otherwise. No other mammographic finding. SONOGRAPHIC FINDINGS: In the inferolateral left breast, sonographic scanning at 4 o'clock demonstrates an echogenic lesion with a hypoechoic center measuring 10 x 6 x 8 mm. It is superficial and heterogeneous. It is located 7 cm from the nipple. On one or two of the images, it appears taller than wide. There is no acoustic shadowing. The lesion cannot be characterized as benign with confidence on mammography or ultrasound. IMPRESSION: BI-RADS category 4 suspicious left breast imaging. Recommend ultrasound-guided needle biopsy, marker clip placement and post clip placement mammography. BIRADS 4: BI-RADS/ACR category 4 mammogram. Suspicious abnormality biopsy should be considered. Patient letter: M4 This mammogram was read with the assistance of an FDA approved computer assisted detection system. TOMY
== END ==
LOC: M WHC 11:33
PROVIDERS: ATTEND Nurse Practitioner Family
DX: Z12.31 Encounter for screening mammogram for malignant neoplasm of breast (principal); N63.20 Unspecified lump in the left breast, unspecified quadrant

== ENCOUNTER → 2020-12-25 | Outpatient (REF) | payer MEDICARE ==
[~2020-12-25] MED LIST changes: +HYDR-3490 PO; -HYDR25TAB PO; +LISI10TA22 PO; -LISI10TA4 PO
[2020-12-25 11:45] LABS: HEMATOCRIT 37.4 % (36.0-47.0); HEMOGLOBIN 11.9 g/dl (12.0-15.5); MEAN CORPUSCULAR HEMOGLOBIN 30.4 pg (27.0-33.0); MEAN CORPUSCULAR HGB CONC 31.8 g/dl (32.0-36.5); MEAN CORPUSCULAR VOLUME 95.4 fl (80.0-96.0); PLATELET COUNT, AUTOMATED 214 10^3/uL (150-450); RED BLOOD COUNT 3.92 10^6/uL (4.00-5.40); WHITE BLOOD COUNT 7.4 10^3/uL (4.0-10.0)
[2020-12-25 12:44] LABS: ALBUMIN 3.5 GM/DL (3.2-5.2); ALT/SGPT 37 U/L (12-78); BILIRUBIN,TOTAL 0.4 MG/DL (0.2-1.0); BLOOD UREA NITROGEN 19 MG/DL (7-18); CALCIUM LEVEL 9.2 MG/DL (8.8-10.2); CARBON DIOXIDE LEVEL 28 MEQ/L (21-32); CHLORIDE LEVEL 100 MEQ/L (98-107); CHOLESTEROL LEVEL 189 MG/DL (<200); CHOLESTEROL RISK RATIO 4.295 (<5); CREATININE FOR GFR 0.75 MG/DL (0.55-1.30); GLOMERULAR FILTRATION RATE > 60.0 (>45); GLUCOSE, FASTING 104 MG/DL (70-100); HDL CHOLESTEROL 44 MG/DL (>40); LDL CHOLESTEROL 111 MG/DL (<100); NON-HDL-C 145 MG/DL; POTASSIUM SERUM 4.3 MEQ/L (3.5-5.1); SODIUM LEVEL 136 MEQ/L (136-145); TOTAL PROTEIN 6.7 GM/DL (6.4-8.2); TRIGLYCERIDES LEVEL 171 MG/DL (<150)
== END ==
LOC: M SFHCCLAY 08:17
PROVIDERS: ATTEND Family Medicine
DX: E89.0 Postprocedural hypothyroidism (principal); I10 Essential (primary) hypertension; Z23 Encounter for immunization
CPT/HCPCS: 80053; 80061; 84443; 85027; 90732; G0009

== ENCOUNTER → 2021-04-28 | Outpatient (REF) | payer MEDICARE ==
[~2021-04-28] MED LIST changes: +ERGO500029 PO; +OMEP40CA4 PO; -OMEP40CA97 PO; -VITA50005 PO
[2021-04-28 13:17] LABS: FREE T4 1.32 NG/DL (0.76-1.46); THYROID STIMULATING HORMONE 0.18 uIU/ML (0.358-3.740)
== END ==
LOC: M SFHCCLAY 08:20
PROVIDERS: ATTEND Family Medicine
DX: E89.0 Postprocedural hypothyroidism (principal)

== ENCOUNTER → 2021-10-26 | Outpatient (REF) | payer MEDICARE ==
[2021-10-26 11:58] LABS: BLOOD UREA NITROGEN 19 MG/DL (7-18); CARBON DIOXIDE LEVEL 31 MEQ/L (21-32); CHLORIDE LEVEL 103 MEQ/L (98-107); CHOLESTEROL LEVEL 180 MG/DL (<200); CHOLESTEROL RISK RATIO 3.829 (<5); CREATININE FOR GFR 0.82 MG/DL (0.55-1.30); FREE T4 1.29 NG/DL (0.76-1.46); GLOMERULAR FILTRATION RATE > 60.0 (>45); GLUCOSE, FASTING 103 MG/DL (70-100); HDL CHOLESTEROL 47 MG/DL (>40); LDL CHOLESTEROL 108 MG/DL (<100); NON-HDL-C 133 MG/DL; POTASSIUM SERUM 4.5 MEQ/L (3.5-5.1); SODIUM LEVEL 138 MEQ/L (136-145); THYROID STIMULATING HORMONE 0.277 uIU/ML (0.358-3.740); TRIGLYCERIDES LEVEL 125 MG/DL (<150)
== END ==
LOC: M SFHCCLAY 08:20
PROVIDERS: ATTEND Family Medicine
DX: E89.0 Postprocedural hypothyroidism (principal); E78.2 Mixed hyperlipidemia; Z85.850 Personal history of malignant neoplasm of thyroid

== ENCOUNTER → 2022-10-31 | Outpatient (REF) | payer MEDICARE ==
[2022-10-31 11:39] LABS: HEMATOCRIT 39.5 % (36.0-47.0); HEMOGLOBIN 12.4 g/dl (12.0-15.5); MEAN CORPUSCULAR HEMOGLOBIN 30.2 pg (27.0-33.0); MEAN CORPUSCULAR HGB CONC 31.4 g/dl (32.0-36.5); MEAN CORPUSCULAR VOLUME 96.3 fl (80.0-96.0); PLATELET COUNT, AUTOMATED 203 10^3/uL (150-450); WHITE BLOOD COUNT 6.4 10^3/uL (4.0-10.0)
[2022-10-31 12:19] LABS: ALBUMIN 3.6 G/DL (3.2-5.2); ALKALINE PHOSPHATASE 108 U/L (46-116); ALT/SGPT 19 U/L (7.0-40); AST/SGOT 21 U/L (<34); BILIRUBIN,TOTAL 0.7 MG/DL (0.3-1.2); BLOOD UREA NITROGEN 25 MG/DL (9-23); CALCIUM LEVEL 8.4 MG/DL (8.3-10.6); CARBON DIOXIDE LEVEL 28 MMOL/L (20-31); CHLORIDE LEVEL 102 MMOL/L (98-107); CHOLESTEROL LEVEL 159 MG/DL (<200); CHOLESTEROL RISK RATIO 3.98 (<5); CREATININE FOR GFR 0.83 MG/DL (0.55-1.30); GLOMERULAR FILTRATION RATE > 60.0 (>45); GLUCOSE, FASTING 98 MG/DL (74-106); HDL CHOLESTEROL 39.9 MG/DL (>40); LDL CHOLESTEROL 92.7 MG/DL (<100); NON-HDL-C 119.1 MG/DL; POTASSIUM SERUM 4.2 MMOL/L (3.5-5.1); SODIUM LEVEL 137 MMOL/L (136-145); THYROID STIMULATING HORMONE 0.316 uIU/ML (0.55-4.78); TOTAL PROTEIN 6.4 G/DL (5.7-8.2); TRIGLYCERIDES LEVEL 132 MG/DL (<150)
== END ==
LOC: M SFHCCLAY 07:44
PROVIDERS: ATTEND Family Medicine
DX: I10 Essential (primary) hypertension (principal); K21.9 Gastro-esophageal reflux disease without esophagitis; E89.0 Postprocedural hypothyroidism; E78.2 Mixed hyperlipidemia

== ENCOUNTER → 2022-11-04 | Outpatient (REF) | payer MEDICARE ==
[2022-11-04 13:09] LABS: APPEARANCE, URINE CLEAR (CLEAR); BACTERIA, URINE AUTO NEGATIVE (NEGATIVE); BILIRUBIN, URINE AUTO NEGATIVE (NEGATIVE); BLOOD, URINE BLOOD NEGATIVE (NEGATIVE); COLOR, URINE YELLOW (YELLOW); GLUCOSE, URINE (UA) AUTO NEGATIVE (NEGATIVE); KETONE, URINE AUTO NEGATIVE (NEGATIVE); LEUKOCYTE ESTERASE, URINE AUTO NEGATIVE (NEGATIVE); NITRITE, URINE AUTO NEGATIVE (NEGATIVE); PROTEIN, URINE AUTO NEGATIVE (NEGATIVE); RBC, URINE AUTO 0 /HPF (0-3); SPECIFIC GRAVITY URINE AUTO 1.017 (1.002-1.035); SQUAMOUS EPITHELIAL CELL UR AU 3 /HPF (0-6); UROBILINOGEN, URINE AUTO 0.2 mg/dL (0.0-2.0); WBC, URINE AUTO 1 /HPF (0-3)
== END ==
LOC: M SFHCCLAY 09:06
PROVIDERS: ATTEND Family Medicine
DX: I10 Essential (primary) hypertension (principal)

== ENCOUNTER → 2023-04-25 | Outpatient (REF) | payer MEDICARE ==
[2023-04-25 11:47] LABS: APPEARANCE, URINE MANUAL CLEAR (CLEAR); COLOR, URINE MANUAL YELLOW (YELLOW)
[2023-04-25 11:48] LABS: BILIRUBIN, URINE MANUAL NEGATIVE (NEGATIVE); GLUCOSE, URINE (UA) MANUAL NEGATIVE (NEGATIVE); KETONE, URINE MANUAL NEGATIVE (NEGATIVE); PROTEIN, URINE MANUAL NEGATIVE (NEGATIVE); UROBILINOGEN, URINE MANUAL NORMAL (NORMAL)
[2023-04-25 11:49] LABS: BLOOD URINE MANUAL NEGATIVE (NEGATIVE); LEUKOCYTE ESTERASE, URINE MAN NEGATIVE (NEGATIVE); NITRITE, URINE MANUAL NEGATIVE (NEGATIVE)
[2023-04-25 12:01] LABS: ALBUMIN 3.5 G/DL (3.2-5.2); ALKALINE PHOSPHATASE 110 U/L (46-116); ALT/SGPT 15 U/L (7.0-40); AST/SGOT 13 U/L (<34); BILIRUBIN,TOTAL 0.5 MG/DL (0.3-1.2); BLOOD UREA NITROGEN 25 MG/DL (9-23); CALCIUM LEVEL 8.8 MG/DL (8.3-10.6); CARBON DIOXIDE LEVEL 30 MMOL/L (20-31); CHLORIDE LEVEL 101 MMOL/L (98-107); CHOLESTEROL LEVEL 162 MG/DL (<200); CHOLESTEROL RISK RATIO 4.02 (<5); CREATININE FOR GFR 0.81 MG/DL (0.55-1.30); GLOMERULAR FILTRATION RATE > 60.0 (>45); GLUCOSE, FASTING 107 MG/DL (74-106); HDL CHOLESTEROL 40.2 MG/DL (>40); LDL CHOLESTEROL 105.8 MG/DL (<100); NON-HDL-C 121.8 MG/DL; POTASSIUM SERUM 4.5 MMOL/L (3.5-5.1); SODIUM LEVEL 139 MMOL/L (136-145); TOTAL PROTEIN 6.2 G/DL (5.7-8.2); TRIGLYCERIDES LEVEL 80 MG/DL (<150)
[2023-04-25 12:07] LABS: FREE T4 1.22 NG/DL (0.89-1.76); THYROID STIMULATING HORMONE 0.223 uIU/ML (0.55-4.78)
== END ==
LOC: M SFHCCLAY 07:25
PROVIDERS: ATTEND Family Medicine
DX: I10 Essential (primary) hypertension (principal); K21.9 Gastro-esophageal reflux disease without esophagitis; E89.0 Postprocedural hypothyroidism; E78.2 Mixed hyperlipidemia

== ENCOUNTER → 2023-11-21 | Outpatient (REF) | payer MEDICARE | LOC: M SFHCCLAY 14:00 | PROVIDERS: ATTEND Family Medicine | DX: E78.2 Mixed hyperlipidemia (principal); I10 Essential (primary) hypertension; K21.9 Gastro-esophageal reflux disease without esophagitis; E89.0 Postprocedural hypothyroidism ==

== ENCOUNTER → 2023-11-22 | Outpatient (REF) | payer MEDICARE ==
[2023-11-22 12:59] LABS: HEMATOCRIT 36.3 % (36.0-47.0); HEMOGLOBIN 11.9 g/dl (12.0-15.5); MEAN CORPUSCULAR HEMOGLOBIN 30.5 pg (27.0-33.0); MEAN CORPUSCULAR HGB CONC 32.8 g/dl (32.0-36.5); MEAN CORPUSCULAR VOLUME 93.1 fl (80.0-96.0); PLATELET COUNT, AUTOMATED 212 10^3/uL (150-450); WHITE BLOOD COUNT 6.2 10^3/uL (4.0-10.0)
[2023-11-22 13:05] LABS: ALBUMIN 3.5 G/DL (3.2-5.2); ALKALINE PHOSPHATASE 101 U/L (46-116); ALT/SGPT 15 U/L (7.0-40); AST/SGOT 15 U/L (<34); BILIRUBIN,TOTAL 0.5 MG/DL (0.3-1.2); BLOOD UREA NITROGEN 19 MG/DL (9-23); CALCIUM LEVEL 9.1 MG/DL (8.3-10.6); CARBON DIOXIDE LEVEL 30 MMOL/L (20-31); CHLORIDE LEVEL 102 MMOL/L (98-107); CHOLESTEROL LEVEL 169 MG/DL (<200); CHOLESTEROL RISK RATIO 3.95 (<5); CREATININE FOR GFR 0.84 MG/DL (0.55-1.30); GLOMERULAR FILTRATION RATE > 60.0 (>45); GLUCOSE, FASTING 97 MG/DL (74-106); HDL CHOLESTEROL 42.7 MG/DL (>40); LDL CHOLESTEROL 90.5 MG/DL (<100); NON-HDL-C 126.3 MG/DL; POTASSIUM SERUM 4.5 MMOL/L (3.5-5.1); SODIUM LEVEL 137 MMOL/L (136-145); TOTAL PROTEIN 6.2 G/DL (5.7-8.2); TRIGLYCERIDES LEVEL 179 MG/DL (<150)
[2023-11-22 13:06] LABS: FREE T4 1.25 NG/DL (0.89-1.76)
== END ==
LOC: M SFHCCLAY 07:53
PROVIDERS: ATTEND Family Medicine
DX: E78.2 Mixed hyperlipidemia (principal); I10 Essential (primary) hypertension; K21.9 Gastro-esophageal reflux disease without esophagitis; E89.0 Postprocedural hypothyroidism

== ENCOUNTER 2024-01-04 06:49 | Day surgery (SDC) | payer MEDICARE ==
[~2024-01-04] VITALS: Ht 154.9 cm; Wt 102.1 kg
[~2024-01-04 06:49] MED LIST changes: +BACL10TA2 PO; +SYNT175T2 PO
[2024-01-04] MEDS: NS 1,000 ML IV ONE (07:42)
[2024-01-04] MEDS ORDERED: propofoL 200 MG/20 ML VIAL As Ordered ONE (08:46)
[2024-01-04] MEDS ORDERED: LIDOCAINE 2% 100MG/5ML SDV (FOR ANES.) As Ordered ONE (08:46)
[2024-01-04 09:15] VITALS: TEMP 98.2
[2024-01-04 09:29] VITALS: BP 139/64; O2SAT 97
== END 2024-01-04 09:33 | disposition home or self-care (01) ==
LOC: M OPP 06:49
PROVIDERS: ATTEND Surgery
DX: Z12.11 Encounter for screening for malignant neoplasm of colon (principal); K57.30 Diverticulosis of large intestine without perforation or abscess without bleeding; I10 Essential (primary) hypertension; E03.9 Hypothyroidism, unspecified; G47.30 Sleep apnea, unspecified; Z99.89 Dependence on other enabling machines and devices; Z87.891 Personal history of nicotine dependence; Z79.02 Long term (current) use of antithrombotics/antiplatelets; Z79.1 Long term (current) use of non-steroidal anti-inflammatories (NSAID); Z79.890 Hormone replacement therapy; Z79.891 Long term (current) use of opiate analgesic; Z79.899 Other long term (current) drug therapy; Z88.0 Allergy status to penicillin

== ENCOUNTER → 2024-05-23 | Outpatient (REF) | payer MEDICARE ==
[~2024-05-23] MED LIST changes: -CRAN400C PO; +CRANBERRY400 MG PO
[2024-05-23 18:12] LABS: HEMATOCRIT 38.8 % (36.0-47.0); HEMOGLOBIN 12.6 g/dl (12.0-15.5); MEAN CORPUSCULAR HEMOGLOBIN 31.4 pg (27.0-33.0); MEAN CORPUSCULAR HGB CONC 32.5 g/dl (32.0-36.5); MEAN CORPUSCULAR VOLUME 96.8 fl (80.0-96.0); PLATELET COUNT, AUTOMATED 231 10^3/uL (150-450); RED BLOOD COUNT 4.01 10^6/uL (4.00-5.40)
[2024-05-23 18:37] LABS: PERCENT SATURATION 18.6 % (13.2-45.0)
[2024-05-23 18:39] LABS: FOLATE 22.69 NG/ML (>5.4)
== END ==
LOC: M SFHCCLAY 13:43
PROVIDERS: ATTEND Family Medicine
DX: Z23 Encounter for immunization (principal); D64.9 Anemia, unspecified

== ENCOUNTER → 2024-10-31 | Outpatient (CLI) | payer MEDICARE ==
[~2024-10-31] MED LIST changes: +PROHANCE 279.3MG/ML 15ML VIAL As Ordered ONE; +PROHANCE 279.3MG/ML 5ML VIAL As Ordered ONE
== END ==
LOC: M RAD 15:06
PROVIDERS: ATTEND Physician Assistant Surgical
DX: R22.42 Localized swelling, mass and lump, left lower limb (principal)
CPT/HCPCS: 73723; A9576

== ENCOUNTER → 2024-12-12 | Outpatient (REF) | payer MEDICARE ==
[~2024-12-12] MED LIST changes: -PROHANCE 279.3MG/ML 15ML VIAL As Ordered ONE; -PROHANCE 279.3MG/ML 5ML VIAL As Ordered ONE
[2024-12-12 12:55] LABS: ALBUMIN 3.8 G/DL (3.2-5.2); ALKALINE PHOSPHATASE 96 U/L (35-104); ALT/SGPT 17 U/L (7.0-40); AST/SGOT 19 U/L (<34); BILIRUBIN,TOTAL 0.8 MG/DL (0.3-1.2); BLOOD UREA NITROGEN 18 MG/DL (9-23); CARBON DIOXIDE LEVEL 29 MMOL/L (20-31); CHLORIDE LEVEL 98 MMOL/L (98-107); CHOLESTEROL LEVEL 200 MG/DL (<200); CHOLESTEROL RISK RATIO 4.31 (<5); CREATININE FOR GFR 0.71 MG/DL (0.55-1.30); GLOMERULAR FILTRATION RATE > 90.0 (>45); GLUCOSE, FASTING 106 MG/DL (74-106); HDL CHOLESTEROL 46.4 MG/DL (>40); LDL CHOLESTEROL 120.6 MG/DL (<100); NON-HDL-C 153.6 MG/DL; POTASSIUM SERUM 4.4 MMOL/L (3.5-5.1); SODIUM LEVEL 136 MMOL/L (136-145); TOTAL PROTEIN 6.8 G/DL (5.7-8.2); TRIGLYCERIDES LEVEL 165 MG/DL (<150)
[2024-12-12 12:56] LABS: FREE T4 1.29 NG/DL (0.89-1.76); THYROID STIMULATING HORMONE 2.682 uIU/ML (0.55-4.78)
[2024-12-12 12:59] LABS: HEMOGLOBIN A1c 5.7 % (4.0-6.0)
== END ==
LOC: M SFHCCLAY 09:02
PROVIDERS: ATTEND Physician Assistant
DX: I10 Essential (primary) hypertension (principal); E78.5 Hyperlipidemia, unspecified; G47.33 Obstructive sleep apnea (adult) (pediatric); E89.0 Postprocedural hypothyroidism; K21.9 Gastro-esophageal reflux disease without esophagitis; Z96.653 Presence of artificial knee joint, bilateral; Z79.899 Other long term (current) drug therapy

== ENCOUNTER 2025-02-13 10:50 | Day surgery (SDC) | payer MEDICARE ==
[~2025-02-13] VITALS: Ht 154.9 cm; Wt 102.6 kg
[~2025-02-13 10:50] MED LIST changes: +ATOR80TA59 PO; +GNP250TA9 PO; +LIDOCAINE 2% 100 MG/5 ML SDV (FOR ANES.) As Ordered ONE; +tumeric PO
[2025-02-13 11:36] VITALS: TEMP 97.6
[2025-02-13 11:50] VITALS: BP 168/73; O2SAT 98
== END 2025-02-13 11:59 | disposition home or self-care (01) ==
LOC: M OPP 10:50
PROVIDERS: ATTEND Surgery
DX: K22.70 Barrett's esophagus without dysplasia (principal); K31.7 Polyp of stomach and duodenum; K22.89 Other specified disease of esophagus; G47.30 Sleep apnea, unspecified; Z88.0 Allergy status to penicillin; Z79.891 Long term (current) use of opiate analgesic; Z79.899 Other long term (current) drug therapy
CPT/HCPCS: 43251; 88305; J3010

== ENCOUNTER → 2025-02-17 | Outpatient (REF) | payer MEDICARE ==
[~2025-02-17] MED LIST changes: -LIDOCAINE 2% 100 MG/5 ML SDV (FOR ANES.) As Ordered ONE
== END ==
LOC: M SFHCCLAY 14:44
PROVIDERS: ATTEND Family Medicine
DX: L02.416 Cutaneous abscess of left lower limb (principal)

== ENCOUNTER → 2025-05-30 | Outpatient (REF) | payer MEDICARE ==
[~2025-05-30] MED LIST changes: -IBUP-1022 PO; +IBUP600T42 PO
[2025-05-30 13:48] LABS: ALT/SGPT 18 U/L (7.0-40); AST/SGOT 19 U/L (<34); CALCIUM LEVEL 8.9 MG/DL (8.3-10.6); CARBON DIOXIDE LEVEL 29 MMOL/L (20-31); CHLORIDE LEVEL 99 MMOL/L (98-107); CHOLESTEROL LEVEL 180 MG/DL (<200); CHOLESTEROL RISK RATIO 3.82 (<5); CREATININE FOR GFR 0.67 MG/DL (0.55-1.30); GLOMERULAR FILTRATION RATE > 90.0 (>45); LDL CHOLESTEROL 108.0 MG/DL (<100); NON-HDL-C 133.0 MG/DL; POTASSIUM SERUM 4.2 MMOL/L (3.5-5.1); SODIUM LEVEL 138 MMOL/L (136-145); TRIGLYCERIDES LEVEL 125 MG/DL (<150)
[2025-05-30 13:50] LABS: FREE T4 1.28 NG/DL (0.89-1.76)
[2025-05-30 14:23] LABS: ESTIMATED AVERAGE GLUCOSE 123.0 MG/DL (60-110)
== END ==
LOC: M SFHCCLAY 07:36
PROVIDERS: ATTEND Physician Assistant
DX: Z00.00 Encounter for general adult medical examination without abnormal findings (principal); I10 Essential (primary) hypertension; E89.0 Postprocedural hypothyroidism; G47.33 Obstructive sleep apnea (adult) (pediatric); K21.9 Gastro-esophageal reflux disease without esophagitis; E78.2 Mixed hyperlipidemia; Z12.31 Encounter for screening mammogram for malignant neoplasm of breast; N95.8 Other specified menopausal and perimenopausal disorders; M25.561 Pain in right knee; Z79.899 Other long term (current) drug therapy